=== PATIENT | male | born 1955 | race African-American/Black ===

== ENCOUNTER → 2016-11-22 | Day surgery (SDC) | payer OTHER ==
[~2016-11-22] MED LIST: BLOOD PRESSURE PO; ONE DAILY FOR1 EAC2 PO
--- NOTE | ~2016-11-22 | OR ---
Unit #: [id number]: [id number] Patient: CHARLENE ROBERSON [id number] [address] [place], [place] [address] [id number] O MR#: [id number] NAME: CHARLENE ROBERSON ROOM: Date of Procedure: 11/22/2016 Admission Date: 11/22/2016 Surgeon: Matteo Dover M.D. : 1955 Attending Physician: Matteo Dvoer M.D. OPERATIVE REPORT PROCEDURE PERFORMED Colonoscopy to cecum. INDICATIONS FOR PROCEDURE Average risk for colorectal cancer. MEDICATIONS Monitored anesthesia. POSTOPERATIVE FINDINGS Normal exam to the cecum. Good prep. PLAN Repeat colonoscopy in 10 years. DESCRIPTION OF PROCEDURE The patient was explained of the procedure, risks, and benefits along with the risks and benefits of anesthesia. He was brought to the endoscopy room. Propofol anesthesia was given. Rectal exam was done, which was normal. Colonoscope was lubricated, passed up the rectum, advanced under direct vision all the way to the cecum. Cecum was identified by ileocecal valve and appendiceal orifice. I then started to pull the scope out carefully looking. No polyps, masses, or colitis were seen. Mucosa was normal and healthy. I retroflexed in the rectum, small hemorrhoids seen. Gently, the scope was pulled out. He tolerated it well. Dictated by... Keesha Acosta/zoe TD: 11/22/2016 09:37 JOB #: [id number] CC: Ravi Guardado M.D. Unit #: [id number] #: [id number] Patient: CHARLENE ROBERSON OPERATIVE REPORT Page 1 of 1 X Matteo Dover MD X PROCEDURE OPERATIVE NOTE
== END | disposition home or self-care (01) ==
LOC: EDSEX 07:49 → COPS 07:49
DX: Z12.11 Encounter for screening for malignant neoplasm of colon (principal); Z88.8 Allergy status to other drugs, medicaments and biological substances; Z98.890 Other specified postprocedural states; Z90.49 Acquired absence of other specified parts of digestive tract; I10 Essential (primary) hypertension; Z79.899 Other long term (current) drug therapy